=== PATIENT | female | born 1965 | race Caucasian/White ===

== ENCOUNTER 2018-02-16 11:29 | Emergency (ER) | payer MEDICAID ==
[~2018-02-16] VITALS: Ht 167.6 cm; Wt 79.8 kg
[2018-02-16 11:34] VITALS: BP 139/93
== END 2018-02-16 12:30 | disposition home or self-care (01) ==
LOC: ER 11:29
DX: L02.11 Cutaneous abscess of neck (principal); Z88.0 Allergy status to penicillin

== ENCOUNTER 2018-02-20 11:46 | Emergency (ER) | payer MEDICAID ==
[~2018-02-20] VITALS: Ht 167.6 cm; Wt 79.8 kg
[2018-02-20 12:39] VITALS: BP 140/67
== END 2018-02-20 13:19 | disposition home or self-care (01) ==
LOC: ER 11:46
DX: L02.11 Cutaneous abscess of neck (principal); Z88.0 Allergy status to penicillin

== ENCOUNTER 2021-05-27 14:41 | Emergency (ER) | payer MEDICAID ==
[~2021-05-27] VITALS: Ht 167.6 cm; Wt 79.4 kg
[2021-05-27 14:55] VITALS: BP 165/89
== END 2021-05-27 17:49 | disposition left against medical advice (07) ==
LOC: ER 14:41
DX: R05.9 Cough, unspecified (principal); R50.9 Fever, unspecified; Z53.21 Procedure and treatment not carried out due to patient leaving prior to being seen by health care provider

== ENCOUNTER 2022-03-03 08:36 | Emergency (ER) | payer MEDICAID ==
[~2022-03-03] VITALS: Ht 162.6 cm; Wt 80.0 kg
[2022-03-03 08:56] VITALS: BP 169/86
[2022-03-03] MEDS ORDERED: IBUP800T27 PO (09:27)
[2022-03-03] MEDS ORDERED: METH750T22 PO (09:27)
[2022-03-03] MEDS ORDERED: KETOROLAC TROMETH 60MG/2ML VIAL IM ONE (09:30)
== END 2022-03-03 09:37 | disposition home or self-care (01) ==
LOC: ER 08:36
DX: S29.019A Strain of muscle and tendon of unspecified wall of thorax, initial encounter (principal); E11.9 Type 2 diabetes mellitus without complications; I10 Essential (primary) hypertension; Z88.0 Allergy status to penicillin; X50.0XXA Overexertion from strenuous movement or load, initial encounter; Y93.89 Activity, other specified; Y92.89 Other specified places as the place of occurrence of the external cause; Y99.8 Other external cause status
CPT/HCPCS: 81002; 82962; 96372; 99283; J1885